=== PATIENT | male | born 1950 | race Two or more races ===

== ENCOUNTER 2017-08-22 20:13 | Emergency (ER) | payer MEDICARE ==
[~2017-08-22] VITALS: Ht 167.6 cm; Wt 85.0 kg
[2017-08-22 20:15] VITALS: BP 152/85
[2017-08-22] MEDS ORDERED: METHOCARBAMOL 750 MG TABLET ONE (21:50)
[2017-08-22] MEDS ORDERED: KETOROLAC 30 MG/1 ML ONE (21:51)
[2017-08-22] MEDS ORDERED: OXYcodone/APAP 5/325MG TABLET ONE (21:51)
[2017-08-22] MEDS ORDERED: OXYcodone/APAP 5/325MG TABLET PO ONE (22:00)
[2017-08-22] MEDS ORDERED: KETOROLAC 30 MG/1 ML IM ONE (22:00)
[2017-08-22] MEDS ORDERED: METHOCARBAMOL 750 MG TABLET PO ONE (22:00)
== END 2017-08-22 22:53 | disposition home or self-care (01) ==
LOC: ED 22:26
DX: S76.111A Strain of right quadriceps muscle, fascia and tendon, initial encounter (principal); I10 Essential (primary) hypertension; X58.XXXA Exposure to other specified factors, initial encounter; Y93.89 Activity, other specified; Y92.89 Other specified places as the place of occurrence of the external cause; Y99.8 Other external cause status
CPT/HCPCS: 72110; 96372; 99284; J1885

== ENCOUNTER → 2017-12-08 | Outpatient (CLI) | payer MEDICARE | END | disposition home or self-care (01) | LOC: CVU 07:27 | PROVIDERS: ATTEND Internal Medicine Cardiovascular Disease | DX: I70.0 Atherosclerosis of aorta (principal); I35.1 Nonrheumatic aortic (valve) insufficiency; I10 Essential (primary) hypertension; E78.5 Hyperlipidemia, unspecified; Z87.891 Personal history of nicotine dependence | CPT/HCPCS: 0399T; 93306; 93978 ==

== ENCOUNTER → 2018-07-19 | Outpatient (CLI) | payer MEDICARE | END | disposition home or self-care (01) | LOC: CFH 08:09 | PROVIDERS: ATTEND Nurse Practitioner | DX: I65.23 Occlusion and stenosis of bilateral carotid arteries (principal); R42 Dizziness and giddiness | CPT/HCPCS: 93880 ==